=== PATIENT | male | born 1990 | race Caucasian/White ===

== ENCOUNTER 2023-09-27 00:38 | Emergency (ER) | payer MEDICAID ==
[~2023-09-27] VITALS: Ht 198.1 cm; Wt 99.8 kg
[2023-09-27 00:54] VITALS: BP_SYST 155; PULSE 94; RESP 20; TEMP 97.7; O2SAT 95
[2023-09-27] MEDS ORDERED: NAPR-1172 PO (03:51)
[2023-09-27 04:00] VITALS: BP_SYST 148; PULSE 66; RESP 17; TEMP 97.6; O2SAT 97
== END 2023-09-27 04:00 | disposition home or self-care (01) ==
LOC: SED 00:38
DX: S02.609A Fracture of mandible, unspecified, initial encounter for closed fracture (principal); Z79.899 Other long term (current) drug therapy; Y04.0XXA Assault by unarmed brawl or fight, initial encounter; Y93.89 Activity, other specified; Y92.89 Other specified places as the place of occurrence of the external cause; Y99.8 Other external cause status
CPT/HCPCS: 70450-TC; 70486; 99284